=== PATIENT | female | born 1985 | race Caucasian/White ===

== ENCOUNTER 2018-12-24 19:42 | Emergency (ER) | payer MEDICAID ==
[2018-12-24] MEDS: ACETAMINOPHEN 325 MG TAB PO (22:38)
[2018-12-24 22:47] LABS: ADD MAN DIFF? NO
[2018-12-24 22:49] LABS: WHITE BLOOD COUNT 13.4 10^3/ul (4.8-10.8)
[2018-12-24 22:49] LABS: BASOPHIL # 0.1 10^3/ul (0.0-0.1); BASOPHILS % 0.4 % (0.0-2.0); EOSINOPHILS # 0.2 10^3/ul (0.0-0.5); EOSINOPHILS % 1.2 % (0.0-7.0); HEMOGLOBIN 11.8 g/dl (12.0-16.0); LYMPHOCYTES # 3.1 10^3/ul (0.8-2.9); LYMPHOCYTES % 23.3 % (15.0-51.0); MEAN CORPUSCULAR HEMOGLOBIN 30.3 pg (29.0-33.0); MEAN CORPUSCULAR HGB CONC 33.7 g/dl (32.0-37.0); MEAN PLATELET VOLUME 8.8 fl (7.4-10.4); MONOCYTE # 1.3 10^3/ul (0.3-0.9); MONOCYTES % 9.5 % (0.0-11.0); NEUTROPHIL # 8.7 10^3/ul (1.6-7.5); NEUTROPHILS % 64.9 % (39.0-77.0); PLATELET COUNT 373 10^3/UL (140-415); RED BLOOD COUNT 3.89 10^6/ul (4.20-5.40); RED CELL DISTRIBUTION WIDTH 13.2 % (11.5-14.5)
[2018-12-24 22:57] LABS: ADD UMIC YES; UR ASCORBIC ACID 40 mg/dL (NEGATIVE); UR BACTERIA FEW /HPF (NONE SEEN); UR BILIRUBIN (Dip) NEGATIVE (NEGATIVE); UR BLOOD (Dip) NEGATIVE (NEGATIVE); UR CLARITY SLIGHTLY CLOUDY (CLEAR); UR COLOR YELLOW (YELLOW); UR GLUCOSE (Dip) NEGATIVE (NEGATIVE); UR KETONES (Dip) NEGATIVE (NEGATIVE); UR LEUKOCYTE ESTERASE (Dip) 1+ Leu/ul (NEGATIVE); UR MUCUS MODERATE /HPF (NONE SEEN); UR NITRITE (Dip) NEGATIVE (NEGATIVE); UR RBC 2 /HPF (0-5); UR SPECIFIC GRAVITY (Dip) 1.024 (1.003-1.030); UR SQUAMOUS EPITHELIAL CELL MODERATE /HPF (FEW); UR TOTAL PROTEIN (Dip) NEGATIVE (NEGATIVE); UR UROBILINOGEN (Dip) NEGATIVE (NEGATIVE); UR WBC 3 /HPF (0-5)
== END 2018-12-24 23:48 | disposition home or self-care (01) ==
LOC: FTE 19:42
DX: O26.891 Other specified pregnancy related conditions, first trimester (principal); R10.9 Unspecified abdominal pain; Z3A.11 11 weeks gestation of pregnancy
CPT/HCPCS: 36415; 76801; 81001; 84702; 85025; 99284-25

== ENCOUNTER 2019-04-03 13:26 | Inpatient (IN) | payer MEDICAID ==
[2019-04-03] MEDS: ACETAMINOPHEN 500 MG TAB PO (15:22)
[2019-04-03] MEDS ORDERED: LACTATED RINGER'S 1,000 ML IV (15:36)
[2019-04-03] MEDS ORDERED: LIDOCAINE 1% (MPF) 30 ML INJ INJ (16:00)
[2019-04-03] MEDS ORDERED: CA GLUCONATE (GM) 10% 10ML INJ IV (16:00)
[2019-04-03] MEDS ORDERED: MISOPROSTOL 200 MCG TAB PR (16:00)
[2019-04-03] MEDS ORDERED: NACL 0.9% 3 ML SYG IV ×2 (16:00)
[2019-04-03] MEDS ORDERED: OXYTOCIN 30 UNITS/LR 500 ML IV ×3 (16:00)
[2019-04-03] MEDS ORDERED: METHYLERGONOVINE 0.2 MG INJ IM (16:00)
[2019-04-03] MEDS ORDERED: CARBOPROST 250 MCG INJ IM (16:00)
[2019-04-03 16:05] LABS: ADD MAN DIFF? NO
[2019-04-03 16:08] LABS: BASOPHIL # 0.1 10^3/ul (0.0-0.1); BASOPHILS % 0.6 % (0.0-2.0); EOSINOPHILS # 0.2 10^3/ul (0.0-0.5); EOSINOPHILS % 1.9 % (0.0-7.0); HEMATOCRIT 26.5 % (37.0-47.0); HEMOGLOBIN 8.7 g/dl (12.0-16.0); LYMPHOCYTES # 2.5 10^3/ul (0.8-2.9); LYMPHOCYTES % 21.2 % (15.0-51.0); MEAN CORPUSCULAR HEMOGLOBIN 28.4 pg (29.0-33.0); MEAN CORPUSCULAR HGB CONC 32.8 g/dl (32.0-37.0); MEAN CORPUSCULAR VOLUME 86.6 fl (82.0-101.0); MEAN PLATELET VOLUME 9.1 fl (7.4-10.4); MONOCYTES % 8.4 % (0.0-11.0); NEUTROPHIL # 7.8 10^3/ul (1.6-7.5); NEUTROPHILS % 65.8 % (39.0-77.0); PLATELET COUNT 344 10^3/UL (140-415); RED BLOOD COUNT 3.06 10^6/ul (4.20-5.40); RED CELL DISTRIBUTION WIDTH 13.2 % (11.5-14.5)
[2019-04-03 16:08] LABS: WHITE BLOOD COUNT 11.9 10^3/ul (4.8-10.8)
[2019-04-03 16:22] LABS: ADD UMIC YES; UR ASCORBIC ACID NEGATIVE (NEGATIVE); UR BACTERIA FEW /HPF (NONE SEEN); UR BILIRUBIN (Dip) NEGATIVE (NEGATIVE); UR BLOOD (Dip) NEGATIVE (NEGATIVE); UR CALCIUM OXALATE CRYSTAL MANY /HPF (NONE SEEN); UR CLARITY CLOUDY (CLEAR); UR COLOR YELLOW (YELLOW); UR GLUCOSE (Dip) NEGATIVE (NEGATIVE); UR KETONES (Dip) NEGATIVE (NEGATIVE); UR LEUKOCYTE ESTERASE (Dip) 1+ Leu/ul (NEGATIVE); UR MUCUS MODERATE /HPF (NONE SEEN); UR NITRITE (Dip) NEGATIVE (NEGATIVE); UR RBC 3 /HPF (0-5); UR SPECIFIC GRAVITY (Dip) 1.023 (1.003-1.030); UR SQUAMOUS EPITHELIAL CELL MANY /HPF (FEW); UR TOTAL PROTEIN (Dip) NEGATIVE (NEGATIVE); UR UROBILINOGEN (Dip) NEGATIVE (NEGATIVE); UR WBC 7 /HPF (0-5)
[2019-04-03] MEDS: LACTATED RINGER'S 1,000 ML IV (16:25)
[2019-04-03 16:26] LABS: INR 0.99; PROTIME 13.2 Sec (11.9-14.9)
[2019-04-03 16:27] LABS: PARTIAL THROMBOPLASTIN TIME 27.5 Sec (23.0-35.0)
[2019-04-03 16:44] LABS: BARBITURATES Negative (NEGATIVE); BENZODIAZEPINES Negative (NEGATIVE); CANNABINOIDS Negative (NEGATIVE); COCAINE Negative (NEGATIVE); OPIATES Negative (NEGATIVE)
[2019-04-03 17:17] LABS: AMPHETAMINE/METHAMPHETAMINE POSITIVE (NEGATIVE)
[2019-04-03] MEDS: MAGNESIUM SULFATE 4 GM/100 ML 100 ML IV (17:38)
[2019-04-03] MEDS ORDERED: ONDANSETRON 4 MG INJ (17:38)
[2019-04-03] MEDS: BETAMET NA PHOS/AC(6 MG/ML) 2 ML INJ SYG IM ×2 (17:52)
[2019-04-03] MEDS: ONDANSETRON 4 MG INJ IV (17:55)
[2019-04-03] MEDS: MAGNESIUM SULFATE 20 GM/500 ML 500 ML IV (18:07)
[2019-04-03] MEDS: AMPICILLIN 2 GM/NS (PMX) 100 ML IV (18:09)
[2019-04-03] MEDS: AMPICILLIN 1 GM/NS (PMX) 50 ML IV (22:06)
[2019-04-04 01:57] LABS: MAGNESIUM 4.7 mg/dl (1.7-2.5)
[2019-04-04] MEDS: LACTATED RINGER'S 1,000 ML IV ×3 (02:01→18:03)
[2019-04-04] MEDS: AMPICILLIN 1 GM/NS (PMX) 50 ML IV ×6 (02:02→22:00)
[2019-04-04] MEDS: MAGNESIUM SULFATE 20 GM/500 ML 500 ML IV ×3 (04:41→21:36)
[2019-04-04 07:12] LABS: MAGNESIUM 5.1 mg/dl (1.7-2.5)
[2019-04-04 13:29] LABS: MAGNESIUM 5.4 mg/dl (1.7-2.5)
[2019-04-04 14:55] LABS: RAPID PLASMA REAGIN NONREACTIVE (NR)
[2019-04-04] MEDS: BETAMET NA PHOS/AC(6 MG/ML) 2 ML INJ SYG IM (18:07)
[2019-04-04 18:29] LABS: MAGNESIUM 5.8 mg/dl (1.7-2.5)
[2019-04-05 01:27] LABS: MAGNESIUM 5.6 mg/dl (1.7-2.5)
[2019-04-05] MEDS: AMPICILLIN 1 GM/NS (PMX) 50 ML IV ×2 (01:58→05:59)
[2019-04-05] MEDS: MAGNESIUM SULFATE 20 GM/500 ML 500 ML IV ×2 (02:03→19:00)
[2019-04-05] MEDS: LACTATED RINGER'S 1,000 ML IV ×4 (02:16→23:36)
[2019-04-05 07:07] LABS: MAGNESIUM 5.3 mg/dl (1.7-2.5)
[2019-04-05 13:07] LABS: MAGNESIUM 5.5 mg/dl (1.7-2.5)
[2019-04-05 18:21] LABS: MAGNESIUM 3.2 mg/dl (1.7-2.5)
[2019-04-06 00:55] LABS: MAGNESIUM 2.2 mg/dl (1.7-2.5)
[2019-04-06] MEDS: MAGNESIUM SULFATE 20 GM/500 ML 500 ML IV (03:36)
[2019-04-06] MEDS: LACTATED RINGER'S 1,000 ML IV (05:12)
[2019-04-06 12:13] LABS: MAGNESIUM 1.8 mg/dl (1.7-2.5)
[2019-04-06 18:40] LABS: MAGNESIUM 1.5 mg/dl (1.7-2.5)
[2019-04-06 19:53] LABS: ADD UMIC NO; UR ASCORBIC ACID NEGATIVE (NEGATIVE); UR BILIRUBIN (Dip) NEGATIVE (NEGATIVE); UR BLOOD (Dip) NEGATIVE (NEGATIVE); UR CLARITY SLIGHTLY CLOUDY (CLEAR); UR COLOR YELLOW (YELLOW); UR GLUCOSE (Dip) NEGATIVE (NEGATIVE); UR KETONES (Dip) NEGATIVE (NEGATIVE); UR LEUKOCYTE ESTERASE (Dip) NEGATIVE Leu/ul (NEGATIVE); UR NITRITE (Dip) NEGATIVE (NEGATIVE); UR RBC 0 /HPF (0-5); UR SPECIFIC GRAVITY (Dip) 1.012 (1.003-1.030); UR TOTAL PROTEIN (Dip) NEGATIVE (NEGATIVE); UR UROBILINOGEN (Dip) NEGATIVE (NEGATIVE); UR WBC 1 /HPF (0-5)
[2019-04-07] MEDS: LACTATED RINGER'S 1,000 ML IV (12:52)
== END 2019-04-07 16:30 | disposition home or self-care (01) | DRG 832 ==
LOC: OBT 13:26 → L-D 13:26 → OBT 15:35 → L-D 15:35
DX: O30.002 Twin pregnancy, unspecified number of placenta and unspecified number of amniotic sacs, second trimester (principal); O26.872 Cervical shortening, second trimester; O47.02 False labor before 37 completed weeks of gestation, second trimester; O99.322 Drug use complicating pregnancy, second trimester; O09.522 Supervision of elderly multigravida, second trimester; F15.90 Other stimulant use, unspecified, uncomplicated; Z3A.25 25 weeks gestation of pregnancy
CPT/HCPCS: 76815; 76817; 80307; 81001; 81003; 83735; 85025; 85610; 85730; 86592; 86850; 86900; 86901; 87086; 87210